=== PATIENT | female | born 1950 | race African-American/Black ===

== ENCOUNTER 2021-04-10 02:17 | Inpatient (IN) | payer MEDICARE, MEDICAID ==
[~2021-04-10] VITALS: Ht 162.6 cm; Wt 75.3 kg
[~2021-04-10 02:17] MED LIST: ACET-2178 GT; ALBU18HF2 IH; ALLO300T2 GT; ASCO-339 GT; CHLO25TA2 GT; CHOL200059 GT; FEO RC; LORA2TAB95 GT; TRAM50TA3 GT; XALAO EACHEYE
[2021-04-10] MEDS ORDERED: PIPERACILLIN/TAZ 3.375G PREMIX 50 ML IV ONE (04:45)
[2021-04-10] MEDS ORDERED: SODIUM CHLORIDE 0.9% 1000ML BAG (SEPSIS BOLUS) IV ONE (04:45)
[2021-04-10] MEDS ORDERED: VANCOMYCIN 1 G PREMIX 200 ML IV ONE (04:45)
[2021-04-10 05:01] LABS: HEMATOCRIT. 24.3 % (36.0-48.0); HEMOGLOBIN. 8.2 g/dL (12.0-16.0); MEAN CORPUSCULAR HEMOGLOBIN 28.4 pg (28.0-32.0); MEAN CORPUSCULAR VOLUME 84.4 fL (81.0-99.0); MEAN PLATELET VOLUME 7.1 fl (7.4-10.4); PLATELET 541 x1000/uL (130-400); RED BLOOD CELL COUNT 2.88 mill/uL (4.2-5.4); RED CELL DISTRIBUTION WIDTH 17.4 % (11.6-14.6)
[2021-04-10 05:17] LABS: CHLORIDE 106 mEq/L (98-107)
[2021-04-10 05:29] LABS: INR 1.2
[2021-04-10 06:38] LABS: PLATELET ESTIMATE INCREASED
[2021-04-10 08:00] VITALS: BP 149/73
[2021-04-10 08:56] LABS: CLARITY URINE CLOUDY (CLEAR); COLOR URINE YELLOW (YELLOW); KETONES URINE NEGATIVE (NEGATIVE); LEUKOCYTE ESTERASE URINE 3+ (NEGATIVE); NITRITE URINE NEGATIVE (NEGATIVE); OCCULT BLOOD URINE TRACE (NEGATIVE); PROTEIN URINE NEGATIVE (NEGATIVE); SPECIFIC GRAVITY URINE 1.016 (1.005-1.030)
[2021-04-10 10:00] VITALS: BP 149/73
[2021-04-10] MEDS ORDERED: ACETAMINOPHEN 325MG TABLET PO PRN ×2 (10:15)
[2021-04-10] MEDS ORDERED: MAGNESIUM/ALUMINUM HYDROXIDE/SIMETHICONE 30ML UDC PO PRN (10:15)
[2021-04-10] MEDS ORDERED: PIPERACILLIN/TAZ 3.375G PREMIX 50 ML IV SCH (10:15)
[2021-04-10] MEDS ORDERED: GUAIFENESIN 200MG/10ML SUGAR FREE UDC PO PRN (10:15)
[2021-04-10] MEDS ORDERED: IPRATROPIUM/ALBUTEROL 0.5-3(2.5)MG/3ML NEB NEB PRN (10:15)
[2021-04-10] MEDS ORDERED: ONDANSETRON HCL 4MG/2ML INJ IV PRN (10:15)
[2021-04-10] MEDS ORDERED: DOCUSATE SODIUM 100MG CAPSULE PO PRN (10:15)
[2021-04-10] MEDS ORDERED: ZOLPIDEM TARTRATE 5MG TABLET PO PRN (10:15)
[2021-04-10] MEDS ORDERED: NITROGLYCERIN 0.4MG TABLET SL SL PRN (10:15)
[2021-04-10] MEDS ORDERED: ENOXAPARIN 30MG/0.3ML SYR SUBCUT SCH (11:00)
[2021-04-10 11:40] LABS: T4 FREE 2.12 ng/dL (0.76-1.46)
[2021-04-10 11:54] LABS: FOLIC ACID (FOLATE) SERUM >20 ng/mL ng/mL (>5.38)
[2021-04-10 12:00] VITALS: BP 110/66
[2021-04-10] MEDS ORDERED: PIPERACILLIN/TAZOBACTAM 3.375G in DEXT 5% WATER 50ML IV SCH ×2 (12:00→14:00)
[2021-04-10 12:05] LABS: VITAMIN B12 SERUM >2000 pg/mL pg/mL (211-911)
[2021-04-10] MEDS: PANTOPRAZOLE SODIUM 40 MG/VIAL IV SCH (12:46)
[2021-04-10] MEDS: KETOROLAC 15MG/ML VIAL IV PRN ×2 (12:53→23:15)
[2021-04-10 16:00] VITALS: BP 113/77
[2021-04-10 16:27] LABS: CREATINE KINASE 406 IU/L (26-192)
[2021-04-10 16:28] LABS: CREATINE KINASE MB FRACTION 11.4 ng/mL (0.5-3.6)
[2021-04-10] MEDS ORDERED: LORA2ORA5 GT (17:20)
[2021-04-10] MEDS ORDERED: CHLO25TA2 GT (17:20)
[2021-04-10] MEDS ORDERED: LATA2.5D14 EACHEYE (17:20)
[2021-04-10] MEDS ORDERED: CHOL200010 GT (17:20)
[2021-04-10] MEDS ORDERED: ZOLP5TAB2 GT (17:20)
[2021-04-10] MEDS ORDERED: ASCO-339 GT (17:20)
[2021-04-10] MEDS ORDERED: GABA-290 GT (17:20)
[2021-04-10] MEDS ORDERED: FAMO-135 GT (17:20)
[2021-04-10] MEDS ORDERED: MULT-230 GT (17:20)
[2021-04-10] MEDS ORDERED: AMLO5TAB88 GT (17:20)
[2021-04-10] MEDS ORDERED: LOSA50TA41 GT (17:20)
[2021-04-10] MEDS ORDERED: ALLO300T2 GT (17:20)
[2021-04-10] MEDS: PIPERACILLIN/TAZOBACTAM 3.375G in DEXT 5% WATER 50ML IV SCH ×2 (17:47→21:17)
[2021-04-10 20:00] VITALS: BP 110/50
[2021-04-10 23:42] LABS: CREATINE KINASE 363 IU/L (26-192)
[2021-04-10 23:43] LABS: CREATINE KINASE MB FRACTION 15.9 ng/mL (0.5-3.6)
[2021-04-11] VITALS (9 sets, daily range): BP systolic 88–139; BP diastolic 46–86
[2021-04-11] MEDS: VANCOMYCIN 1 G PREMIX 200 ML IV SCH ×2 (02:28→23:55)
[2021-04-11] MEDS: PIPERACILLIN/TAZOBACTAM 3.375G in DEXT 5% WATER 50ML IV SCH ×3 (05:14→20:08)
[2021-04-11] MEDS ORDERED: CEFAZOLIN 1000MG PREMIX 50 ML IV NR (06:00)
[2021-04-11] MEDS: KETOROLAC 15MG/ML VIAL IV PRN ×2 (09:09→16:52)
[2021-04-11] MEDS: PANTOPRAZOLE SODIUM 40 MG/VIAL IV SCH (09:09)
[2021-04-11 10:27] LABS: INR 1.4; PARTIAL THROMBOPLASTIN TIME 35.4 sec (23.4-31.0); PROTHROMBIN TIME 14.2 sec (9.6-11.0)
[2021-04-11 10:28] LABS: CHLORIDE 102 mEq/L (98-107)
[2021-04-11 10:34] LABS: PHOSPHORUS 3.4 mg/dL (2.5-4.9)
[2021-04-11 12:17] LABS: HEMATOCRIT. 24.5 % (36.0-48.0); HEMOGLOBIN. 7.8 g/dL (12.0-16.0); MEAN CORPUSCULAR HEMOGLOBIN 27.9 pg (28.0-32.0); MEAN PLATELET VOLUME 7.5 fl (7.4-10.4); PLATELET 414 x1000/uL (130-400); RED BLOOD CELL COUNT 2.79 mill/uL (4.2-5.4); RED CELL DISTRIBUTION WIDTH 17.2 % (11.6-14.6)
[2021-04-11] MEDS ORDERED: CEFAZOLIN SODIUM 1000MG/VIAL IV ONE (14:30)
[2021-04-11 17:11] LABS: PLATELET ESTIMATE INCREASED
[2021-04-11] MEDS ORDERED: MIDAZOLAM HCL 5 MG/5 ML VIAL ONE (17:16)
[2021-04-11] MEDS: SODIUM CHLORIDE 0.9% 1,000 ML IV SCH (20:08)
[2021-04-11 20:36] LABS: BASOPHILS % 0.3 % (0.0-2.0); EOSINOPHILS % 0.3 % (0.0-5.0); HEMATOCRIT. 27.4 % (36.0-48.0); HEMOGLOBIN. 8.6 g/dL (12.0-16.0); LYMPHOCYTES % 7.3 % (20.0-50.0); MEAN CORPUSCULAR HEMOGLOBIN 27.6 pg (28.0-32.0); MEAN CORPUSCULAR VOLUME 87.8 fL (81.0-99.0); MEAN PLATELET VOLUME 7.5 fl (7.4-10.4); MONOCYTES % 6.8 % (2.0-8.0); NEUTROPHILS % 85.3 % (40.0-76.0); PLATELET 440 x1000/uL (130-400); RED BLOOD CELL COUNT 3.12 mill/uL (4.2-5.4); RED CELL DISTRIBUTION WIDTH 17.3 % (11.6-14.6)
[2021-04-11 20:52] LABS: CHLORIDE 105 mEq/L (98-107)
[2021-04-12] VITALS (8 sets, daily range): BP systolic 131–161; BP diastolic 53–118
[2021-04-12] MEDS: PIPERACILLIN/TAZOBACTAM 3.375G in DEXT 5% WATER 50ML IV SCH ×3 (05:15→21:40)
[2021-04-12] MEDS: FOLIC ACID 1MG TABLET PO SCH (08:55)
[2021-04-12] MEDS: ASCORBIC ACID 500 MG TABLET PO SCH (08:55)
[2021-04-12] MEDS: THIAMINE HCL 100MG TABLET PO SCH (08:55)
[2021-04-12] MEDS: ZINC SULFATE 220 MG ( 50 ) CAPSULE PO SCH (08:55)
[2021-04-12] MEDS: PANTOPRAZOLE SODIUM 40 MG/VIAL IV SCH (08:58)
[2021-04-12] MEDS ORDERED: ENOXAPARIN 30MG/0.3ML SYR SUBCUT SCH (09:00)
[2021-04-12 09:15] LABS: BASOPHILS % 0.3 % (0.0-2.0); EOSINOPHILS % 0.2 % (0.0-5.0); HEMATOCRIT. 26.8 % (36.0-48.0); HEMOGLOBIN. 8.5 g/dL (12.0-16.0); LYMPHOCYTES % 8.1 % (20.0-50.0); MEAN CORPUSCULAR HEMOGLOBIN 28.1 pg (28.0-32.0); MEAN PLATELET VOLUME 7.3 fl (7.4-10.4); MONOCYTES % 4.9 % (2.0-8.0); NEUTROPHILS % 86.5 % (40.0-76.0); PLATELET 435 x1000/uL (130-400); RED BLOOD CELL COUNT 3.04 mill/uL (4.2-5.4); RED CELL DISTRIBUTION WIDTH 17.5 % (11.6-14.6)
[2021-04-12 09:22] LABS: CHLORIDE 109 mEq/L (98-107)
[2021-04-12] MEDS: KETOROLAC 15MG/ML VIAL IV PRN ×3 (09:52→23:25)
[2021-04-12] MEDS ORDERED: LIDOCAINE HCL 1% 20ML VIAL (Pyxis) INJ INFIL NR (11:00)
[2021-04-12] MEDS ORDERED: LIDOCAINE HCL 2% JELLY 5ML TOP NR (11:00)
[2021-04-12] MEDS ORDERED: LIDOCAINE HCL 1% 20ML VIAL (Pyxis) INJ ONE (12:39)
[2021-04-12] MEDS ORDERED: IOHEXOL-300 50 ML BOTTLE IV ONE (13:10)
[2021-04-12] MEDS: SODIUM CHLORIDE 0.9% 1,000 ML IV SCH (14:12)
[2021-04-12] MEDS ORDERED: IOHEXOL-350 100 ML BOTTLE ONE (15:14)
[2021-04-12] MEDS ORDERED: NALOXONE HCL 0.4MG/ML VIAL IV PRN (20:30)
[2021-04-12] MEDS: MORPHINE SULFATE 2 MG/ML CPJ (NOT FOR IM USE) IV PRN (21:35)
[2021-04-12] MEDS: VANCOMYCIN 1 G PREMIX 200 ML IV SCH (23:25)
[2021-04-13] VITALS (9 sets, daily range): BP systolic 110–153; BP diastolic 50–81
[2021-04-13 01:18] LABS: HEMATOCRIT 25.2 % (36.0-48.0); HEMOGLOBIN 8.1 g/dL (12.0-16.0)
[2021-04-13] MEDS: PIPERACILLIN/TAZOBACTAM 3.375G in DEXT 5% WATER 50ML IV SCH ×3 (06:55→23:55)
[2021-04-13] MEDS: SODIUM CHLORIDE 0.9% 1,000 ML IV SCH ×2 (06:56→21:03)
[2021-04-13] MEDS: THIAMINE HCL 100MG TABLET PO SCH (09:00)
[2021-04-13] MEDS: ZINC SULFATE 220 MG ( 50 ) CAPSULE PO SCH (09:00)
[2021-04-13] MEDS: FOLIC ACID 1MG TABLET PO SCH (09:00)
[2021-04-13] MEDS: ASCORBIC ACID 500 MG TABLET PO SCH (09:00)
[2021-04-13] MEDS ORDERED: ENOXAPARIN 40MG/0.4ML SYR SUBCUT SCH (09:00)
[2021-04-13] MEDS: PANTOPRAZOLE SODIUM 40 MG/VIAL IV SCH (09:41)
[2021-04-13] MEDS: MORPHINE SULFATE 2 MG/ML CPJ (NOT FOR IM USE) IV PRN ×2 (09:42→21:04)
[2021-04-13 10:18] LABS: CHLORIDE 112 mEq/L (98-107)
[2021-04-13 10:21] LABS: INR 1.3; PARTIAL THROMBOPLASTIN TIME 30.7 sec (23.4-31.0); PROTHROMBIN TIME 13.7 sec (9.6-11.0)
[2021-04-13] MEDS ORDERED: LIDOCAINE HCL 1% 20ML VIAL (Pyxis) INJ INFIL NR (11:00)
[2021-04-13 11:46] LABS: MEAN CORPUSCULAR HEMOGLOBIN 27.8 pg (28.0-32.0); MEAN CORPUSCULAR VOLUME 89.1 fL (81.0-99.0); MEAN PLATELET VOLUME 6.9 fl (7.4-10.4); PLATELET 372 x1000/uL (130-400); RED BLOOD CELL COUNT 2.54 mill/uL (4.2-5.4); RED CELL DISTRIBUTION WIDTH 17.8 % (11.6-14.6)
[2021-04-13 11:57] LABS: HEMATOCRIT. 22.6 % (36.0-48.0)
[2021-04-13 12:20] LABS: PLATELET ESTIMATE NORMAL
[2021-04-13] MEDS ORDERED: POTASSIUM CHLORIDE INJ 40 MEQ in DEXT 5% WATER 250 ML IV NR (21:30)
[2021-04-14] VITALS: BP 155/87
[2021-04-14] MEDS: VANCOMYCIN 1 G PREMIX 200 ML IV SCH (00:57)
[2021-04-14] MEDS: KETOROLAC 15MG/ML VIAL IV PRN (02:37)
[2021-04-14 04:00] VITALS: BP 149/88
[2021-04-14] MEDS: PIPERACILLIN/TAZOBACTAM 3.375G in DEXT 5% WATER 50ML IV SCH ×3 (06:49→21:49)
[2021-04-14 08:00] VITALS: BP 171/60
[2021-04-14] MEDS: THIAMINE HCL 100MG TABLET PO SCH (09:00)
[2021-04-14] MEDS: ZINC SULFATE 220 MG ( 50 ) CAPSULE PO SCH (09:00)
[2021-04-14] MEDS: FOLIC ACID 1MG TABLET PO SCH (09:00)
[2021-04-14] MEDS: ASCORBIC ACID 500 MG TABLET PO SCH (09:00)
[2021-04-14] MEDS: PANTOPRAZOLE SODIUM 40 MG/VIAL IV SCH (09:31)
[2021-04-14] MEDS: SODIUM HYPOCHLORITE 0.125% 473ML SOLUTION TOP SCH (09:32)
[2021-04-14 12:00] VITALS: BP 146/58
[2021-04-14 13:10] LABS: EOSINOPHILS % 0.2 % (0.0-5.0); HEMATOCRIT. 22.2 % (36.0-48.0); HEMOGLOBIN. 7.1 g/dL (12.0-16.0); LYMPHOCYTES % 12.2 % (20.0-50.0); MEAN CORPUSCULAR HEMOGLOBIN 27.9 pg (28.0-32.0); MEAN CORPUSCULAR VOLUME 87.3 fL (81.0-99.0); MEAN PLATELET VOLUME 6.5 fl (7.4-10.4); MONOCYTES % 7.6 % (2.0-8.0); PLATELET 361 x1000/uL (130-400); RED BLOOD CELL COUNT 2.54 mill/uL (4.2-5.4); RED CELL DISTRIBUTION WIDTH 17.7 % (11.6-14.6)
[2021-04-14 13:16] LABS: CHLORIDE 116 mEq/L (98-107)
[2021-04-14] MEDS: SODIUM CHLORIDE 0.9% 1,000 ML IV SCH (13:31)
[2021-04-14] MEDS: MORPHINE SULFATE 2 MG/ML CPJ (NOT FOR IM USE) IV PRN (14:48)
[2021-04-14 16:00] VITALS: BP 168/87
[2021-04-14] MEDS: CLONIDINE 0.1MG TABLET PO PRN (17:22)
[2021-04-14 19:25] LABS: HEMATOCRIT 22.3 % (36.0-48.0); HEMOGLOBIN 7.2 g/dL (12.0-16.0)
[2021-04-14 20:00] VITALS: BP 127/61
[2021-04-15] VITALS: BP 132/80
[2021-04-15] MEDS: VANCOMYCIN 1 G PREMIX 200 ML IV SCH (00:56)
[2021-04-15 04:00] VITALS: BP 158/76
[2021-04-15] MEDS: SODIUM CHLORIDE 0.9% 1,000 ML IV SCH (05:56)
[2021-04-15] MEDS: PIPERACILLIN/TAZOBACTAM 3.375G in DEXT 5% WATER 50ML IV SCH ×2 (05:56→13:25)
[2021-04-15 07:44] LABS: CHLORIDE 114 mEq/L (98-107)
[2021-04-15 07:49] LABS: INR 1.2; PROTHROMBIN TIME 12.8 sec (9.6-11.0)
[2021-04-15 08:00] VITALS: BP 165/62
[2021-04-15 08:01] LABS: BASOPHILS % 0.3 % (0.0-2.0); EOSINOPHILS % 0.4 % (0.0-5.0); HEMATOCRIT. 26.4 % (36.0-48.0); LYMPHOCYTES % 19.9 % (20.0-50.0); MEAN CORPUSCULAR HEMOGLOBIN 28.4 pg (28.0-32.0); MEAN CORPUSCULAR VOLUME 93.2 fL (81.0-99.0); MEAN PLATELET VOLUME 7.3 fl (7.4-10.4); MONOCYTES % 8.3 % (2.0-8.0); NEUTROPHILS % 71.1 % (40.0-76.0); PLATELET 334 x1000/uL (130-400); RED BLOOD CELL COUNT 2.83 mill/uL (4.2-5.4); RED CELL DISTRIBUTION WIDTH 17.9 % (11.6-14.6)
[2021-04-15] MEDS: PANTOPRAZOLE SODIUM 40 MG/VIAL IV SCH (09:15)
[2021-04-15] MEDS: THIAMINE HCL 100MG TABLET PO SCH (09:15)
[2021-04-15] MEDS: ASCORBIC ACID 500 MG TABLET PO SCH (09:15)
[2021-04-15] MEDS: FOLIC ACID 1MG TABLET PO SCH (09:16)
[2021-04-15] MEDS: SODIUM HYPOCHLORITE 0.125% 473ML SOLUTION TOP SCH (09:16)
[2021-04-15] MEDS: MORPHINE SULFATE 2 MG/ML CPJ (NOT FOR IM USE) IV PRN (09:37)
[2021-04-15 12:00] VITALS: BP 149/67
[2021-04-15] MEDS: ZINC SULFATE 220 MG ( 50 ) CAPSULE PO SCH (13:25)
[2021-04-15 16:00] VITALS: BP 156/86
[2021-04-15 20:00] VITALS: BP 156/58
[2021-04-16] MEDS: PIPERACILLIN/TAZOBACTAM 3.375G in DEXT 5% WATER 50ML IV SCH ×2 (00:01→06:59)
[2021-04-16 04:00] VITALS: BP 189/74
[2021-04-16] MEDS: CLONIDINE 0.1MG TABLET PO PRN (07:00)
[2021-04-16 08:00] VITALS: BP 152/39
[2021-04-16] MEDS: FOLIC ACID 1MG TABLET PO SCH (09:46)
[2021-04-16] MEDS: THIAMINE HCL 100MG TABLET PO SCH (09:46)
[2021-04-16] MEDS: ASCORBIC ACID 500 MG TABLET PO SCH (09:46)
[2021-04-16] MEDS: PANTOPRAZOLE SODIUM 40 MG/VIAL IV SCH (09:46)
[2021-04-16] MEDS: ZINC SULFATE 220 MG ( 50 ) CAPSULE PO SCH (09:46)
[2021-04-16] MEDS: SODIUM HYPOCHLORITE 0.125% 473ML SOLUTION TOP SCH (09:47)
[2021-04-16 12:00] VITALS: BP_SYST 153; BP_SYST 165; BP_DIAS 61; BP_DIAS 87
[2021-04-16] MEDS ORDERED: LINEZOLID XX SCH (13:30)
[2021-04-16] MEDS ORDERED: MEROPENEM 1 GM XX SCH (13:30)
[2021-04-16] MEDS: MEROPENEM 1000MG in NORMAL SALINE 100ML IV SCH ×2 (13:43→22:06)
[2021-04-16 16:00] VITALS: BP 150/42
[2021-04-16] MEDS: LINEZOLID 600 MG PREMIX 300 ML IV SCH (16:13)
[2021-04-16] MEDS: SODIUM CHLORIDE 0.9% 1,000 ML IV SCH ×2 (16:14)
[2021-04-16 20:00] VITALS: BP 164/86
[2021-04-16] MEDS: ENOXAPARIN 40MG/0.4ML SYR SUBCUT SCH (22:05)
[2021-04-17] VITALS: BP 175/65
[2021-04-17] MEDS: CLONIDINE 0.1MG TABLET PO PRN (01:05)
[2021-04-17] MEDS: LINEZOLID 600 MG PREMIX 300 ML IV SCH ×2 (03:42→18:34)
[2021-04-17 04:00] VITALS: BP 149/61
[2021-04-17 06:14] LABS: BASOPHILS % 0.1 % (0.0-2.0); HEMOGLOBIN. 8.3 g/dL (12.0-16.0); LYMPHOCYTES % 32.5 % (20.0-50.0); MEAN CORPUSCULAR HEMOGLOBIN 28.9 pg (28.0-32.0); MEAN CORPUSCULAR VOLUME 90.1 fL (81.0-99.0); MEAN PLATELET VOLUME 7.7 fl (7.4-10.4); MONOCYTES % 4.4 % (2.0-8.0); PLATELET 320 x1000/uL (130-400); RED BLOOD CELL COUNT 2.89 mill/uL (4.2-5.4); RED CELL DISTRIBUTION WIDTH 18.5 % (11.6-14.6)
[2021-04-17] MEDS: MEROPENEM 1000MG in NORMAL SALINE 100ML IV SCH ×3 (06:28→22:00)
[2021-04-17 07:16] LABS: CHLORIDE 113 mEq/L (98-107)
[2021-04-17 08:00] VITALS: BP 115/57
[2021-04-17] MEDS ORDERED: DILTIAZEM HCL 30MG TABLET PO SCH (09:00)
[2021-04-17] MEDS: SODIUM HYPOCHLORITE 0.125% 473ML SOLUTION TOP SCH (09:00)
[2021-04-17] MEDS: SODIUM CHLORIDE 0.9% 1,000 ML IV SCH (10:40)
[2021-04-17] MEDS: FOLIC ACID 1MG TABLET PO SCH (11:17)
[2021-04-17] MEDS: ASCORBIC ACID 500 MG TABLET PO SCH (11:18)
[2021-04-17] MEDS: ZINC SULFATE 220 MG ( 50 ) CAPSULE PO SCH (11:18)
[2021-04-17] MEDS: THIAMINE HCL 100MG TABLET PO SCH (11:18)
[2021-04-17 12:00] VITALS: BP 119/64
[2021-04-17] MEDS: PANTOPRAZOLE SODIUM 40 MG/VIAL IV SCH (13:52)
[2021-04-17] MEDS: AMLODIPINE 5MG TABLET PO SCH (13:53)
[2021-04-17 16:00] VITALS: BP 122/63
[2021-04-17 20:00] VITALS: BP 121/88
[2021-04-17] MEDS: ENOXAPARIN 40MG/0.4ML SYR SUBCUT SCH (22:00)
[2021-04-17] MEDS ORDERED: POTASSIUM CHLORIDE 20MEQ/PACKET PO SCH (22:45)
[2021-04-18] VITALS: BP 119/42
[2021-04-18] MEDS: LINEZOLID 600 MG PREMIX 300 ML IV SCH ×2 (02:02→17:14)
[2021-04-18] MEDS: SODIUM CHLORIDE 0.9% 1,000 ML IV SCH ×2 (02:02→21:10)
[2021-04-18] MEDS: MEROPENEM 1000MG in NORMAL SALINE 100ML IV SCH ×3 (05:09→21:10)
[2021-04-18] MEDS: AMLODIPINE 5MG TABLET PO SCH (09:00)
[2021-04-18] MEDS: ZINC SULFATE 220 MG ( 50 ) CAPSULE PO SCH (09:00)
[2021-04-18] MEDS: ASCORBIC ACID 500 MG TABLET PO SCH (09:00)
[2021-04-18] MEDS: SODIUM HYPOCHLORITE 0.125% 473ML SOLUTION TOP SCH (09:00)
[2021-04-18] MEDS: THIAMINE HCL 100MG TABLET PO SCH (09:00)
[2021-04-18] MEDS: FOLIC ACID 1MG TABLET PO SCH (09:00)
[2021-04-18] MEDS: PANTOPRAZOLE SODIUM 40 MG/VIAL IV SCH (10:47)
[2021-04-18] MEDS ORDERED: POTASSIUM CHLORIDE 20MEQ/PACKET PO NR (11:00)
[2021-04-18 12:00] VITALS: BP 141/21
[2021-04-18] MEDS ORDERED: MIDAZOLAM HCL 2 MG/2 ML VIAL ONE ×2 (13:35→15:38)
[2021-04-18] MEDS ORDERED: FENTANYL CITRATE/PF 50MCG/ML 2ML VIAL ONE (13:35)
[2021-04-18] MEDS ORDERED: PROPOFOL 200MG/20ML VIAL IV ONE (15:38)
[2021-04-18] MEDS ORDERED: PHENYLEPHRINE HCL 10 MG/ML 1ML (IV VIAL) IV ONE (15:49)
[2021-04-18 16:00] VITALS: BP 138/41
[2021-04-18 20:00] VITALS: BP 161/68
[2021-04-18] MEDS: ENOXAPARIN 40MG/0.4ML SYR SUBCUT SCH (21:10)
[2021-04-19] VITALS: BP 158/78
[2021-04-19] MEDS: LINEZOLID 600 MG PREMIX 300 ML IV SCH (02:53)
[2021-04-19 04:00] VITALS: BP 156/52
[2021-04-19] MEDS: MEROPENEM 1000MG in NORMAL SALINE 100ML IV SCH ×3 (04:57→21:46)
[2021-04-19] MEDS: SODIUM HYPOCHLORITE 0.125% 473ML SOLUTION TOP SCH (09:00)
[2021-04-19] MEDS: AMLODIPINE 5MG TABLET PO SCH (10:03)
[2021-04-19] MEDS: THIAMINE HCL 100MG TABLET PO SCH (10:04)
[2021-04-19] MEDS: ZINC SULFATE 220 MG ( 50 ) CAPSULE PO SCH (10:04)
[2021-04-19] MEDS: FOLIC ACID 1MG TABLET PO SCH (10:04)
[2021-04-19] MEDS: ASCORBIC ACID 500 MG TABLET PO SCH (10:04)
[2021-04-19] MEDS: PANTOPRAZOLE SODIUM 40 MG/VIAL IV SCH (10:12)
[2021-04-19] MEDS: SODIUM CHLORIDE 0.9% 1,000 ML IV SCH (11:20)
[2021-04-19 12:00] VITALS: BP 158/68
[2021-04-19 16:00] VITALS: BP 150/78
[2021-04-19 18:00] VITALS: BP 145/78
[2021-04-19 20:00] VITALS: BP 148/68
[2021-04-19] MEDS: ENOXAPARIN 40MG/0.4ML SYR SUBCUT SCH (21:00)
[2021-04-20] MEDS ORDERED: AMLODIPINE 10MG TABLET PO SCH (09:00)
== END 2021-04-19 21:56 | DRG 871 ==
LOC: ER 02:17 → 8WST 07:14 → ENRESERV 08:36 → CANBEDREQ 18:39 → 3WST 04-13 03:05 → 8WST 04-13 16:24
PROVIDERS: ADMIT Internal Medicine; ATTEND Internal Medicine
PROC: 02HV33Z Insertion of Infusion Device into Superior Vena Cava, Percutaneous Approach (ICD-10-PCS; principal; 2021-04-12)
PROC: B548ZZA Ultrasonography of Superior Vena Cava, Guidance (ICD-10-PCS; 2021-04-12)
PROC: B5181ZA Fluoroscopy of Superior Vena Cava using Low Osmolar Contrast, Guidance (ICD-10-PCS; 2021-04-12)
PROC: 0Y9J0ZZ Drainage of Left Lower Leg, Open Approach (ICD-10-PCS; 2021-04-13)
PROC: 0DH63UZ Insertion of Feeding Device into Stomach, Percutaneous Approach (ICD-10-PCS; 2021-04-18)
DX: A41.9 Sepsis, unspecified organism (principal); L89.213 Pressure ulcer of right hip, stage 3; E43 Unspecified severe protein-calorie malnutrition; R65.21 Severe sepsis with septic shock; G92 Toxic encephalopathy; N17.0 Acute kidney failure with tubular necrosis; K29.71 Gastritis, unspecified, with bleeding; E11.52 Type 2 diabetes mellitus with diabetic peripheral angiopathy with gangrene; L97.409 Non-pressure chronic ulcer of unspecified heel and midfoot with unspecified severity; N39.0 Urinary tract infection, site not specified; K94.22 Gastrostomy infection; M86.8X7 Other osteomyelitis, ankle and foot; I13.0 Hypertensive heart and chronic kidney disease with heart failure and stage 1 through stage 4 chronic kidney disease, or unspecified chronic kidney disease; I50.32 Chronic diastolic (congestive) heart failure; D63.8 Anemia in other chronic diseases classified elsewhere; E11.22 Type 2 diabetes mellitus with diabetic chronic kidney disease; E11.621 Type 2 diabetes mellitus with foot ulcer; K44.9 Diaphragmatic hernia without obstruction or gangrene; R13.12 Dysphagia, oropharyngeal phase; Z53.9 Procedure and treatment not carried out, unspecified reason; E11.69 Type 2 diabetes mellitus with other specified complication; R74.01 Elevation of levels of liver transaminase levels; L89.156 Pressure-induced deep tissue damage of sacral region; I49.3 Ventricular premature depolarization; Z20.822 Contact with and (suspected) exposure to COVID-19; F03.90 Unspecified dementia, unspecified severity, without behavioral disturbance, psychotic disturbance, mood disturbance, and anxiety; K80.20 Calculus of gallbladder without cholecystitis without obstruction; Z86.73 Personal history of transient ischemic attack (TIA), and cerebral infarction without residual deficits; Z95.0 Presence of cardiac pacemaker; Z79.899 Other long term (current) drug therapy; Z68.28 Body mass index [BMI] 28.0-28.9, adult; N18.9 Chronic kidney disease, unspecified; B95.4 Other streptococcus as the cause of diseases classified elsewhere; R04.0 Epistaxis
CPT/HCPCS: 36415; 36573; 71045; 73630; 74176; 75635; 80048; 80053; 80061; 80202; 81003; 82040; 82550; 82553; 82607; 82728; 82746; 82962; 83036; 83540; 83550; 83605; 83735; 84100; 84134; 84145; 84439; 84443; 84484; 85014; 85018; 85025; 85044; 85651; 86140; 86850; 86870; 86900; 86920; 87070; 87075; 87077; 87186; 87426; 93005; 93306; 93970; 99291; C1725; C1893; C9113; J0690; J1650; J1885; J2020; J2185; J2250; J2270; J2370; J2405; J2543; J2704; J3010; J3370; J3480; J3490; J7030; J7040; J7060; Q9967